=== PATIENT | female | born 1935 | race Caucasian/White ===

== ENCOUNTER 2017-02-11 05:49 | Day surgery (SDC) | payer MEDICARE ==
--- NOTE | 2017-01-22 14:12 | PCM.ANEPRE ---
Anesthesia Pre-Op Review Reason for Review: office request. Anesthesia Recommendations: Proceed with Procedure Additional Comments 81 yo w/ recurrent renal cell ca presents for laparoscopic excision. Remaining kidney CKD stage III, GFR 30-40. Cardiac function is good, EF 60%, mild MR. Last nuc med stress test 2013 okay, though patient with low exercise capacity. 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 Recommend good IV access and blood available. Also note that during nephrectomy 2009 anesthesiologist recorded airway was not easy (difficult grade III laryngoscopy, anterior on glidescope hard to get tube in place) Based on a review of her chart I see no reason to delay her operation for further workup. Doni Olea MD Jan 22, 2017 14:12
[~2017-02-11] VITALS: Ht 152.4 cm; Wt 72.6 kg
[2017-02-11] VITALS (11 sets, daily range): BP systolic 119–153; BP diastolic 54–83; PULSE 51–68; RESP 9–20; O2SAT 95–100
[2017-02-11] MEDS: Lactated Ringer's 1,000 ML IV SCH ×5 (05:00→08:30)
[~2017-02-11 05:49] MED LIST: ACET-2605 PO; AMLO5TAB2 PO; ASCO100T11 PO; ASPI-973 PO; ATOR20TA PO; BIMA2.5D5 OD; CARV6.252 PO; CHOL200025 PO; CYAN500T53 SL; FURO40TA4 PO; RES15 PO; TIMO5DRO26 OP; ZYL100 PO
[2017-02-11] MEDS ORDERED: Neostigmine 1 mg/mL 10 mL Inj ONE (05:50)
[2017-02-11] MEDS ORDERED: Propofol 10,000 mCg/mL 20 mL Inj ONE ×2 (05:50)
[2017-02-11] MEDS ORDERED: Rocuronium 10 mg/mL 5 mL Inj ONE (05:50)
[2017-02-11] MEDS ORDERED: EPHEDrine/NS 5 mg/mL 5 mL Syringe ONE (05:50)
[2017-02-11] MEDS ORDERED: Glycopyrrolate 0.2 MG/ML 1mL Inj ONE (05:50)
[2017-02-11] MEDS ORDERED: Ketamine 10 mg/mL 20 mL Inj ONE (05:50)
[2017-02-11] MEDS ORDERED: Succinylcholine Chloride 20 mg/mL 5 mL Inj ONE (05:50)
[2017-02-11] MEDS ORDERED: fentaNYL-PF 50 mCg/mL 2 mL Inj ONE (05:50)
[2017-02-11] MEDS ORDERED: Dexamethasone 4 mg/mL Inj ONE (05:50)
[2017-02-11] MEDS ORDERED: Ondansetron 2 mg/mL 2 mL Inj ONE (05:50)
[2017-02-11] MEDS ORDERED: CeFAZolin Inj 2 GM in IV Premix 1 EACH IV ONE (06:00)
[2017-02-11] MEDS ORDERED: Bupivacaine-MPF 0.25%/EPI 30 mL Inj INFILTRATE ONE ×2 (07:31→12:00)
[2017-02-11] MEDS ORDERED: Nitroglycerin 50,000 mcg/250 mL D5W Premix IV ONE (08:36)
[2017-02-11] MEDS: Norepineph 8,000 mCg/250 mL NS 8,000 MCG in IV Premix 1 EACH IV SCH (09:05)
[2017-02-11] MEDS ORDERED: Lactated Ringer's 1,000 ML IV SCH (10:02)
[2017-02-11] MEDS ORDERED: Lactated Ringer's 500 ML IV PRN (10:02)
--- NOTE | 2017-02-11 10:02 | PCM.HPANE ---
Patient Data Date of Service: February 11, 2017 Surgeon Admitting Provider: Attending Provider:Cyrus Melgar MD Primary Care Physician:Randi Monson Other Provider:Sindhu Beasley Anesthesia Reason for Visit Renal Cell Cancer, Retroperitoneal Mass Ht/WT & BMI Height (Feet): 5 Height (Inches): 0 Weight (Kilograms): 68.4 Body Mass Index 29.00 Allergies Coded Allergies: No Known Allergies (Verified Allergy, Unknown, 02/11/17) lisinopril (Verified Adverse Reaction, Unknown, cough, 12/30/16) Past Anesthesia History Anesthesia History: Positive for:: Difficult Intubation, Denies:: Anesthesia Reactions, Fam Anesthesia Reaction Diabetes History Hx Diabetes?: No Current Bedside Blood Glucose: 141 MRSA MRSA: No Medications Blood Thinner: Aspirin Hypertension Medication: Yes Home Meds Incl Beta Nathan: Yes (CARVEDILOL) Date Beta Nathan Taken: February 11, 2017 Time Beta Nathan Taken: 0500 Reported Medications Timolol (Betimol)5 Ml Drops5 Ml OP DAILY 05/14/16 Temazepam 15 Mg [id number] Mg PO HS PRN For Insomnia 30 Days Ref 0 05/14/16 Aspirin 81 Mg [id number] Mg PO DAILY Ref 0 05/14/16 Carvedilol 6.25 Mg Tablet6.25 Mg PO BID Ref 0 05/14/16 Atorvastatin (Lipitor)20 Mg [id number] Mg PO DAILY Ref 0 05/14/16 Amlodipine 5 Mg Tablet5 Mg PO DAILY Ref 0 05/14/16 Allopurinol 100 Mg [id number] Mg PO DAILY Ref 0 05/14/16 Furosemide 40 Mg Cavlrp37 Mg PO DAILY 05/14/16 Discontinued Reported Medications Cholecalciferol (Vitamin D3) (Vitamin D3)2,000 Unit Tablet2,000 Unit PO 12/29/16 Ascorbic Acid (Vitamin C)100 Mg TabletUnknown Dose PO 12/29/16 Cyanocobalamin (Vitamin B-12) (Vitamin B-12)500 Mcg Tab.oxyn105 Mcg SL DAILY 12/29/16 Acetaminophen/Diphenhydramine (Tylenol Pm Ex-Strength Caplet)500 Mg-25 Mg Tablet1 Each PO DIRECTED 05/14/16 Bimatoprost (Lumigan)45 Drop/2.5 Ml Ophsoln5 Ml OD HS PRN eyes #1 BOTTLE HOLD 05/14/16 History History of ENT Problems?: Yes HEENT History: Positive for:: Cataracts (bilateral surgery) Glaucoma Denies:: Abnormal Airway Difficult Intubation Dysphagia Hearing Problem Sinus Problem TMJ Denture Type: None Teeth Condition: Within Normal Limits Hx of Heart Problems?: Yes Cardiovascular History: Positive for:: Edema (right ankle) Heart Murmur (MR) Hypertension Denies:: AICD Abdominal Aortic Aneurism Atrial Fibrillation Cardiac Surgery Chest Pain Congestive Heart Failure Coronary Artery Disease Irregular Heartbeat Pacemaker Peripheral Vascular Rheumatic Fever Thrombophlebitis Valvular Heart Disease (echo 2016- ef 60-65%) Hx of Respiratory Problem?: No Respiratory History: Denies:: Asthma COPD Chest Surgery Cough Dyspnea Emphysema Hemoptysis Oxygen Administration Pneumonia Pulmonary Embolism Tuberculosis Use of C-PAP Machine Use of Inhalers / NEBS Hx Neurologic Problems?: No Neurological History: Denies:: Alzheimer's Disease CVA Dementia Dizziness Headaches Multiple Sclerosis Parkinson's Disease Peripheral Neuropathy Seizures TIA Hx of GI Problems?: No Gastrointestinal History: Positive for:: Gastroesphageal Reflux Denies:: Cirrhosis Diverticulitis Gall Bladder Disease Gastrointestinal Bleeding Heartburn Hepatitis Hiatal Hernia Liver Disease Rectal Bleeding Hx of Problems?: Yes Genitourinary History: Denies:: HX of Hemodialysis Kidney Stones Urinary Tract Infection Other Pertinent History: hx of right nephrectomy for renal cell ca 2009- now with retroperitoneal mass increasing in size Other History/Comment CKD III Female Hx: Denies:: Currently (post menopausal) Endometriosis Pelvic Inflammatory Problems with Breasts? Skin History: Denies:: History Skin Disorders? Pressure Ulcers Hx Musculoskeletal Problems?: Yes Musculoskeletal History: Positive for:: Degenerative Joint Joint Replacement (right knee replacement (2003)) Osteoarthritis Denies:: Fibromyalgia Systemic Lupus (possible dx- not worked up seeing Dr Mclain) Hx of Psycho/Social Problems?: Yes Psycho Social History: Positive for:: Anxiety Denies:: Hx Depression Hx Surgeries?: Yes (Right knee replaced/right nephrectomy) Hx Any Other Health Problems?: Yes Other History: Positive for:: Cancer (kidney (2009)) Hospitalization Denies:: Thyroid Disease History Blood Transfusions: Denies:: Blood Transfusions Hx Diabetes: NoBedside Blood Glucose: 141 Hx Alcohol Use: YesHx Substance Use: No Smoking Status: Never Smoker Have You Smoked inLast 12 mo: No Stop/Bang Treated for Sleep Apnea?: No Do You Have a CPAP Machine?: No S-Snoring: Do You Snore Loudly: No T-Tired: feel tired, fatigued: Yes O-Obsered: Observed not breath: No P-Blood Pressure: treated: Yes B- Body Mass Index > 35 kg/m2: No A- Age over 50: Yes N- Neck Large Circumference: No G- Gender Male: No RAMIREZ Total Score: 3 RAMIREZ Risk Assessment: Low Risk, <3 Yes Risk Assessment Category Category 1A: Patient has history of documented sleep apnea, and HAS NOT received any narcotic, sedative or anesthesia administration during this stay. Category 1B: Patient has history of documented sleep apnea, and HAS received any narcotic , sedative or anesthesia administration during this stay Category 2: Patient has SUSPECTED Obstructive Sleep Apnea, and HAS received any narcotic , sedative or anesthesia administration during this stay. Category 3: Patient has SUSPECTED Obstructive Sleep Apnea and HAS NOT received narcotic, sedative or anesthesia administration during this stay. Category 4: Outpatient in Procedural Areas with known sleep apnea or who screen positive for High Risk via the STOP/BANG questionnaire. Exam Exam Vital Signs Vital Signs Date Time Temp Pulse Resp B/P Pulse Ox O2 Delivery O2 Flow Rate FiO2 02/11/17 06:17 36 62 16 135/62 96 Room Air General Appearance: Alert, Oriented X3 HEENT/AIRWAY: MP 2 Lungs: Clear to Auscultation Heart: Exam Unremarkable Meds/Labs/Diagnostics Admission Meds Current Medications Lactated Ringer's (Lr) 1,000 ml @ 120 mls/hr Q8H20M IV Last administered on 08:15; Start 02/11/17 at 05:00; Stop 02/11/17 at 13:19 Bupivacaine HCl/ Epinephrine Bitart (Sensorcaine-MPF 0.25%/EPI Inj) 30 ml STK- MED ONCE INFILTRATE Last administered on 02/11/17 07:31; Start 02/11/17 at 07:31 ; Stop 02/11/17 at 09:07; Status DC Bedside Blood Glucose: 141 Plan Impression Patient chart reviewed, patient interviewed and anesthestic plan with risks, benefits, and alternatives discussed, and informed consent obtained. ASA Physical Status: ASA3 Severe Disease Anesthetic Support Modalities: [place] Scope, Arterial Line, Central Line, Hemodynamic Monitoring Anesthetic Plan: GA Bene/Risks/Altern/Consents: Yes HP Complete Prior to Induction: Yes Partha Noble MD February 11, 2017 10:02
[2017-02-11] MEDS ORDERED: MetoCLOpramide 5 mg/mL 2 mL Inj IVPUSH PRN ×2 (10:05→12:35)
[2017-02-11] MEDS ORDERED: fentaNYL-PF 50 mCg/mL 2 mL Inj IVPUSH PRN (10:05)
[2017-02-11] MEDS ORDERED: HYDROmorphone 1 mg/mL Inj IVPUSH PRN (10:05)
[2017-02-11] MEDS ORDERED: EPHEDrine Sulfate 50 mg/mL Inj IVPUSH PRN (10:05)
[2017-02-11] MEDS ORDERED: Dexamethasone 4 mg/mL Inj IVPUSH PRN (10:05)
[2017-02-11] MEDS ORDERED: Phenylephrine 10,000 mCg/mL Inj IVPUSH PRN (10:05)
[2017-02-11] MEDS ORDERED: Ondansetron 2 mg/mL 2 mL Inj IVPUSH PRN ×2 (10:05→12:35)
[2017-02-11] MEDS: Dextrose 5% 0.45% NaCl 1,000 ML IV SCH (12:31)
[2017-02-11 13:11] LABS: APPEARANCE,URINE HAZY (CLEAR,HAZY); COLOR,URINE STRAW (YELLOW); OCCULT BLOOD,URINE NEGATIVE (NEGATIVE); UROBILINOGEN,URINE NORMAL (NORMAL)
--- NOTE | 2017-02-11 13:17 | PCM.ANEP1 ---
Post Anesthesia Phase 1 PACU Phase 1 Assessment Date of Service: February 11, 2017 Vital Signs Vital Signs Date Time Temp Pulse Resp B/P Pulse Ox O2 Delivery O2 Flow Rate FiO2 02/11/17 13:00 57 9 127/83 100 Simple Mask 8 02/11/17 12:45 61 129/59 100 Simple Mask 8 02/11/17 12:40 68 128/58 100 Simple Mask 8 02/11/17 12:35 36.3 119/63 02/11/17 06:17 36 62 16 135/62 96 Room Air Anesthetic Administered: GA Level of Alertness: Awake, talking Pain: No Nausea or Vomiting: No Oxygen Delivery: Simple Mask Lungs: Clear to Auscultation Complications: No Follow up Care: No Comments cxr reviewed. Partha Noble MD February 11, 2017 13:17
--- NOTE | 2017-02-11 13:21 | DRSVH ---
PROCEDURE: X-RAY CHEST ONE VIEW, PORTABLE ([id number]) INDICATIONS: RIJ central line TECHNIQUE: One view of the chest was acquired. COMPARISON: [facility], CT, CT CHEST WO CON, 01/11/2017, 16:42. FINDINGS: Surgical changes and devices: Right IJ central line is in place tip projected over the right atrium.. Lungs and pleura: Airspace opacity involves the left lung base and possible small left pleural effusi on. Right lung is clear. No pneumothorax. Mediastinum: Mediastinal contours appear normal. Heart size is normal. Bones and chest wall: No suspicious bony lesions. Overlying soft tissues appear unremarkable. IMPRESSION: 1. Placement right IJ CVL with tip projected over the right atrium. 2. Airspace opacity involving the left lung base consistent with atelectasis, aspiration or pneumonia and possibly a trace left pleural effusion is present. No pneumothorax. Dictated by: Jaime Schmidt Denisse Interpreted: Clemente Aguero MD on 02/11/2017 at 13:19 Transcribed by: KATHERINE on 02/11/2017 at 13:21 Approved by: Clemente Aguero M.D. on 02/11/2017 at 13:51
[2017-02-11 13:24] LABS: BASOPHILS % (AUTO) 0.2 % (0-3); EOSINOPHILS % (AUTO) 0.2 % (0-5); MONOCYTES % (AUTO) 2.4 % (4-12); Mean Corpuscular Hemoglobin 29.3 pg (27.0-35.0); Mean Corpuscular Volume 87.7 fL (81-100); NEUTROPHILS % (AUTO) 85.3 % (40-74); Platelet Count 212 bil/L (150-400)
[2017-02-11] MEDS ORDERED: Glucose 40% Oral Gel 15 Gm Tube PO PRN (13:35)
[2017-02-11] MEDS ORDERED: Insulin LISPRO 300 Unit/3 mL Inj SUBQ ONE (13:50)
--- NOTE | 2017-02-11 14:00 | NUR ---
Post Op Pt A&Ox3. WOOD. Arrived in own bed. Family was called per pts request. Left hand SL. Tolerating clear liquids. Denies nausea. 5 Lap sites C/D/I. Pressure dressing on right neck and right hand both C/D/I. Rates pain 4/10 in the abdomen. Medication given in PACU. 98% on 3L via NC titrated down to 1 L sating 98%. Pt is bradycardic. Will continue to monitor.
[2017-02-11] MEDS: Insulin LISPRO 300 Unit/3 mL Inj SUBQ SCH ×2 (17:49→21:44)
[2017-02-11] MEDS: Heparin 5,000 Unit/mL Inj SUBQ SCH (17:51)
--- NOTE | 2017-02-11 21:18 | OP ---
[address] [address] OPERATIVE REPORT PATIENT: MARSHA RM : 1935 MR#: [id number] ADMIT: 02/11/2017 JOB ID: [id number] DATE OF SURGERY: 02/11/2017 ANESTHESIA: General. PREOPERATIVE DIAGNOSIS(ES): Recurrent right renal cell cancer. 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 OPERATION: Laparoscopic right adrenalectomy. (22 modifier is billed due to increased difficulty in a reoperative field requiring increased time and equipment utilization.) SURGEON: Dr. Cyrus Melgar. MANAGER CAFE: Nury Concepcion MD (field administrative assistant was required for the safe and timely completion of the case) and Paul Tilley PA-C. COMPLICATIONS: None. ESTIMATED BLOOD LOSS: Less than 10 mL. CONDITION: Satisfactory. SPECIMEN: Right adrenal gland and recurrent renal cell tumor, stitch marked the new renal vein margin. FINDINGS: The mass was invading but not abutting the inferior vena cava. Initially, it was unclear whether or not this was arising from the staple line from the previous transection of the renal vein. I therefore transected the renal vein more proximally. However, upon mobilizing superiorly, it seemed that this was arising from the adrenal gland and therefore the right adrenal gland was taken out en bloc. 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 Final pathology demonstrated T1 tumor with negative margins. No lymphatic or venous invasion. She had a CT scan for surveillance in March 2016 which showed a 3.3 cm low attenuation mass in the right renal fossa. This seems to be contiguous with the adrenal gland and potentially invading the inferior vena cava. At that time, endoscopic ultrasound was performed with transduodenal biopsy. The results returned benign lymphoid tissue. Therefore, decision was made to continue to survey her. Followup CT scan in October of this year showed that it had grown to 4.4 cm. Therefore, repeat biopsy was performed at this time percutaneously under CT guidance. This time the final pathology demonstrated clear cell type renal cell carcinoma. After review of the case at our multidisciplinary cancer conference, decision was made for resection. OPERATIVE TECHNIQUE: The patient was taken to the operating room and placed in supine position. General anesthesia was administered and perioperative antibiotics were given. The abdomen was prepped and draped in standard surgical fashion. I initially began with a left lower quadrant Optiview trocar. Due to adhesions, it was difficult to determine if I was in the preperitoneal space or in the abdomen. Therefore, I went to the midline in her old incision and made a small incision and inserted a 5 mm trocar in open Gi technique. At this point,though in the abdomen, it was apparent that there were dense adhesions associated with her midline incision from her nephrectomy. I ended up inserting additional 5 mm ports, two in the right lower quadrant, one in the right upper quadrant, one just left of midline for a total of six 5 mm ports. Eventually, the one at the right lower quadrant was up-sized to a 12 mm port to accommodate the stapler. I began by taking down the adhesions. I then mobilized the right colon to the midline. The duodenum was then Kocherized carefully off the inferior vena cava. The gallbladder was grasped and retracted cephalad to expose the tumor. I took down some of the right triangular ligament to mobilize the liver a little bit more. I then began working circumferentially around the tumor. The tumor was adherent to but not invading the IVC and eventually a plane was dissected. I continued to work around circumferentially. I encountered the right renal vein stump. It was not clear to me whether or not this was where the tumor was arising from. I therefore took the right gonadal vein with the Ligasure which was draining right at the right renal vein/IVC junction. This allowed me to work a plane underneath the right renal vein stump. I then transected this with a single fire of a LINDA 45 white load. A single clip was placed on the staple line at a point of modest bleeding. No arterial stump was identified. I then continued to work cephalad, completely mobilizing the tumor off the inferior vena cava. It seemed to be completely contiguous to the adrenal gland. I therefore continued to work around using the energy device to take all of the small vessels arising from the IVC to the tumor. Eventually, this was completely mobilized. The specimen was then placed in an EndoCatch bag. Of note, there was a prominent lymph node adjacent to the duodenum over the portal vein; I could not help but wonder if this was what was biopsied during the EUS procedure. The patient had a midline hernia associated with her previous laparotomy for the nephrectomy hand port site. I therefore just opened the skin a couple of centimeters here and removed the specimen through this. The 12-mm port site fascia was closed using 0 PDS suture with a laparoscopic suture passer. All skin incisions were closed with 4-0 Monocryl. The entire procedure was well tolerated without complication. DIMITRI
[2017-02-12] MEDS: Heparin 5,000 Unit/mL Inj SUBQ SCH ×2 (00:10→08:28)
[2017-02-12 00:32] VITALS: BP 136/83; PULSE 62; RESP 16; O2SAT 94
--- NOTE | 2017-02-12 03:02 | NUR ---
Pain Pt. reports pain 5/10 during assessment. PO Tylenol given. Pt. is now sleeping. Will continue to monitor.
[2017-02-12] MEDS: Dextrose 5% 0.45% NaCl 1,000 ML IV SCH (04:32)
[2017-02-12 06:05] LABS: BASOPHILS % (AUTO) 0.2 % (0-3); EOSINOPHILS % (AUTO) 0 % (0-5); Mean Corpuscular Hemoglobin 29.7 pg (27.0-35.0); Mean Corpuscular Volume 87.1 fL (81-100); NEUTROPHILS % (AUTO) 69.5 % (40-74); Platelet Count 234 bil/L (150-400)
[2017-02-12 06:09] VITALS: BP 144/75; PULSE 74; RESP 18; O2SAT 92
--- NOTE | 2017-02-12 06:40 | NUR ---
Mtz d/c, Activity Mtz d/c'd this morning at 6AM. Pt. tolerated procedure well. 10 cc of saline taken out of balloon. Pt. educated on voiding trial. Pt. also was able to dangle and get out of bed during NOC shift well with SBA.
[2017-02-12] MEDS: Insulin LISPRO 300 Unit/3 mL Inj SUBQ SCH ×2 (07:08→11:46)
[2017-02-12 08:20] VITALS: BP 145/73; PULSE 65; RESP 16; O2SAT 94
[2017-02-12] MEDS ORDERED: TIMOLOL SCH (08:30)
[2017-02-12] MEDS ORDERED: Timolol 0.5% 5 mL Ophthalmic Solution BOTH_EYES SCH (08:30)
[2017-02-12] MEDS: Norepineph 8,000 mCg/250 mL NS 8,000 MCG in IV Premix 1 EACH IV SCH (09:05)
--- NOTE | 2017-02-12 10:07 | PROG NOTE ---
[address] [address] PROGRESS NOTE PATIENT: MARSHA RM : 1935 MR#: [id number] ADMIT: 02/11/2017 JOB ID: [id number] DATE: 02/12/2017 DATE: 02/12/2017 HISTORY OF PRESENT ILLNESS: The patient is seen postoperative day one from a laparoscopic right adrenalectomy for locally recurrent renal cell carcinoma. The patient had an uneventful night. This morning, she tells me she is having minimal pain. OBJECTIVE: She has remained afebrile and hemodynamically normal. This morning, she is alert, oriented and comfortable. Her incisions are inspected and look fine. LABORATORY STUDIES: Her white blood cell count is mildly elevated as expected at 12.9. Her hematocrit is stable at 37.8, platelet count is 234. Her creatinine is around baseline at 1.39. ASSESSMENT AND PLAN: This is an 81-year-old female postoperative day one from laparoscopic right adrenalectomy for locally recurrent renal cell carcinoma. The patient is doing well. I anticipate she may be able to go home later this afternoon. Her Mtz has been removed. We are waiting for her to get up and mobilize and void. I will have her wear an abdominal binder because she has a risk of evisceration due to her hernia. DIMITRI
--- NOTE | 2017-02-12 12:25 | PCM.DISURG ---
Surgical Discharge Instruction Date of Service February 12, 2017 Dates of Hospitalization Date of Hospital Admission Providers Admitting Physician: Primary Care Physician: Randi Monson Attending Physician: Cyrus Melgar MD Discharge Diagnosis Discharge Diagnosis recurrent renal cell carcinoma Diet Discharge Diet: No restrictions Activity Discharge Activity-General: No restrictions Dressing and Incisional Care Dressing Care: Allow Steri Stripes to fall off Hygiene: February shower Follow Up Plan Follow Up Plan f/u with Dr melgar in 2-3 weeks Call your provider for: Fever, Chills, Nausea, Vomiting, Wound redness, Discharge @ incision, pus discharge Cyrus Melgar MD February 12, 2017 12:25
--- NOTE | 2017-02-12 12:36 | PROG NOTE ---
[address] [address] PROGRESS NOTE PATIENT: MARSHA RM : 1935 MR#: [id number] ADMIT: 02/11/2017 JOB ID: [id number] DATE: 02/12/2017 SUBJECTIVE: The patient is an 81-year-old woman with history of resected T1b N0 clear cell carcinoma of the right kidney in July 2010. She has had an increasing mass in the right renal bed for the past eight or nine months, with recent positive biopsy. Dr. Cyrus Melgar took her to surgery yesterday, performing a laparoscopic right adrenalectomy. He found a mass abutting but not invading the inferior vena cava. The patient has a new renal vein margin. Pathology is not yet available. OBJECTIVE: Vitals: T 36.7, P 65, R 16, BP 145/73. Exam postsurgical laparoscopic resection of recurrent renal cell carcinoma. LABORATORIES: WBC 12.9, hemoglobin 12.9, hematocrit 37.8%, platelets 234,000. BUN 40, creatinine 1.39, glucose 132. ASSESSMENT AND PLAN: Day one status post laparoscopic surgical resection of recurrent right renal cell cancer: The patient appears to have had a successful surgical procedure. She is hoping to go home later today. Pathology is pending. Await results of final pathology and margins. I will discuss this further with the patient the week of February 22, 2018. In the event that she has positive margins, consider adjuvant radiation therapy. However, if margins are negative, then we would simply monitor clinically. In the event of advanced disease, treatment with molecularly targeted therapy or immunotherapy could be considered. Most likely, the patient will have clean margins with no indication for additional therapy at this time.
--- NOTE | 2017-02-12 13:25 | PCM.DC.SUR ---
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 Other chronic conditions: 1. Essential hypertension 2. Gout 3. Hypercholesterolemia 4. 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 Insomnia 6. Mitral valve regurgitation 7. Restless leg syndrome 8. History of renal cell carcinoma Problems: Operation Laparoscopic right adrenalectomy Brief History and Physical: The patient is a 81-year-old woman who was initially referred by Dr. Anne in April of 2016 regarding further evaluation and management of a right retroperitoneal mass. The patient underwent a laparoscopic, hand-assisted, right nephrectomy for what proved to be clear cell type renal cell carcinoma on 07/21/2010. Final pathology showed a T1 tumor with negative margins and no lymphatic or venous invasion. There were no nodes in the specimen.. She had been having surveillance CTs and on the March 30 CT there was noted to be a 3.3 x 2.9 cm low-attenuation mass in the anterior aspect of the right renal fossa which was contiguous with the adrenal gland as well as indirectly approximate to the inferior vena cava. On 06/18/2016 she underwent upper endoscopy and EUS. EUS demonstrated a 2.2 x 2 cm isoechoic/hyperechoic lesion between the IVC and portal vein up biting but not invading the IVC and portal vein. This area was biopsied through the duodenum. Studies were sent for flow cytometry. Biopsies showed benign lymphoid tissue and so a decision was made for observation. However, on CT scan obtained on 10/15/2016 the lesion was seen to have increase in size. Preoperatively measuring 4.3 x 2.7 x 4.4" compared with 3.7 x 2.5 x 3.7" in March 2016. CT-guided biops demonstrated clear cell type renal carcinoma. Her case was reviewed at the multidisciplinary cancer conference and options including chemotherapy, radiation therapy, or surgery were discussed. The consensus was that the best option would be surgery. If an R0 resection was not able to be obtained, debulking followed by adjuvant radiation therapy would be the next best option. Consultants: None Hospital Course: The patient was admitted and underwent the above-mentioned operation without complication. She was stable for discharge on her first postsurgical day. Pathology: Pending Disposition: The patient was discharged to home on her first postsurgical day at which time she was ambulating, not nauseated, her wounds were intact, and she was comfortable on minimal oral analgesic. Follow-up Plan: She will follow-up in the office with Dr. Melgar in 2-3 weeks. Allopurinol (Allopurinol) 100 Mg Tablet 100 MG PO DAILY (Reported) Amlodipine (Amlodipine) 5 Mg Tablet 5 MG PO DAILY (Reported) Aspirin (Aspirin) 81 Mg Tablet 81 MG PO DAILY (Reported) Atorvastatin (Lipitor) 20 Mg Tablet 20 MG PO DAILY (Reported) Carvedilol (Carvedilol) 6.25 Mg Tablet 6.25 MG PO BID (Reported) Furosemide (Furosemide) 40 Mg Tablet 40 MG PO DAILY (Reported) Temazepam (Temazepam) 15 Mg Capsule 15 MG PO HS PRN PRN For Insomnia (Reported) Timolol (Betimol) 5 Ml Drops 5 ML OP DAILY (Reported) copies to: Randi Monson; Elisabet Anen MD, Fred H PA-C February 12, 2017 13:25
--- NOTE | 2017-02-12 13:28 | NUR ---
Discharge Pt discharged from room 1031 at 1328 via private vehicle home with family. Pt reports pain is at a tolerable level medicated with Tylenol. Dressings removed by MD. Minimal drainage at umbilicus site. Abdominal binder placed. Items received from surgery. All discharge teaching and instructions done with at bedside. No RX to be given. No items in the safe or pharmacy.
--- NOTE | 2017-02-16 10:07 | PATH ---
SURGICAL PATHOLOGY Attending Physician:Cyrus Melgar MD CASE STATUS: Signed Out PATIENT NAME: MARSHA RM PID: [id number] : 1935 DATE COLLECTED:02/11/2017 00:00 SPECIMEN: Adrenal Gland, Resection CLINICAL HISTORY: RECURRENT RENAL CELL CA 1). RIGHT ADRENAL AND RECURRENT RENAL CA FINAL DIAGNOSIS: 1.RIGHT ADRENAL GLAND: METASTATIC RENAL CELL CARCINOMA, CLEAR CELL TYPE, FURHMAN NUCLEAR GRADE 2. TUMOR MEASURES 4.0 X 3.5 X 2.2 CM, WHICH IS APPROXIMATELY 80% OF THE ADRENAL GLAND. TUMOR APPEARS CONFINED TO THE ADRENAL GLAND WITH NO EXTRA-ADRENAL EXTENSION. ICD10 CODE C79.71 GROSS DESCRIPTION: Specimen received in formalin, site unstated, specimen consists of a 53 gram adrenalectomy specimen measuring 6.5 x 4.5 x 2.5 cm. The specimen is surrounded by fat measuring 7.5 x 3.3 x 1.8 cm in thickness. Specimen is oriented with a suture marking the vascular staple line. There is a white firm nodule 2 mm away from the surgical resection margin. Cut surface shows a white to mayo, roughly oval mass measuring 4.0 x 3.5 x 2.2 cm occupying about 80% of the adrenal gland. The remainder of adrenal gland is avendaño yellow and solid. Call Center Analyst sections submitted as follows: cassette 1A-the vascular resection margin. Note: After removing the surgical line, the nodule is at the resection margin but grossly before removing the surgical lines is about 0.2 cm. Cassettes B, C and D-telephone services sales representative sections from the mass. Cassette E from grossly uninvolved adrenal gland. No lymph node-like structure identified within the surrounding fat. Call Center Analyst sections from the fat submitted in cassette F. ([id number]) MICRO DESCRIPTION: Sections are of a mass stated to be from the right adrenal gland. The tumor cells consist of a monotonous population of clear cells with slightly enlarged nuclei that are hyperchromatic with some small nucleoli. The morphology would be quite consistent with metastatic clear cell renal cell carcinoma, however, immunohistochemistry is performed in order to rule out the possibility that this might be a primary adrenal tumor. Immunohistochemistry Results: CD10:Tumor cells positive PAX-8:Tumor cells positive Melan A:Tumor cells negative Inhibin:Tumor cells negative Interpretation: This immunophenotype is characteristic of a primary renal cell carcinoma, clear cell type, and rules against a primary adrenal tumor. This test was developed and its performance characteristics determined by [facility]. It has not been cleared or approved by the [place]. Food and Drug Administration. The FDA has determined that such clearance or approval is not necessary. This test is used for clinical purposes. It should not be regarded as investigational or for research. ICD-9 CODES: CPT CODES: 1: 72598, 96302, 67449, 38992, 16553 Electronically Signed Out Jose Enrique Alford MD [facility] [address], [place] [address] Technical component performed at [facility], [address], [place], [address]
== END 2017-02-12 13:24 ==
LOC: SAS 05:49 → OSC 13:57 → UNDOADMIN 13:57 → UNDODISIN 02-12 13:24 → OSC 02-12 13:24 → SAS 02-12 13:24
PROVIDERS: ATTEND General Practice
PROC: 0GT34ZZ Resection of Right Adrenal Gland, Percutaneous Endoscopic Approach (ICD-10-PCS; principal; 2017-02-11 07:15)
DX: C79.71 Secondary malignant neoplasm of right adrenal gland (principal); I13.11 Hypertensive heart and chronic kidney disease without heart failure, with stage 5 chronic kidney disease, or end stage renal disease; N18.5 Chronic kidney disease, stage 5; Z85.528 Personal history of other malignant neoplasm of kidney; Z90.5 Acquired absence of kidney; E78.00 Pure hypercholesterolemia, unspecified; M10.9 Gout, unspecified; G47.00 Insomnia, unspecified; I34.8 Other nonrheumatic mitral valve disorders; G25.81 Restless legs syndrome; Z79.82 Long term (current) use of aspirin
CPT/HCPCS: 36415; 60650; 71010; 80048; 80053; 81000; 85025; 87086; 87088; 94640; J0330; J0690; J1100; J1170; J1644; J1815; J2405; J2710; J3010; J7120